=== PATIENT | male | born 1990 | race Caucasian/White ===

== ENCOUNTER → 2021-07-18 12:30 | Outpatient (BNVA) | payer OTHER, SELFPAY | PROVIDERS: Family Provider Family Medicine; PCP Family Medicine; Visit Provider Nurse Practitioner | DX: J02.9 Acute pharyngitis, unspecified (principal) | CPT/HCPCS: 87880 ==

== ENCOUNTER 2021-08-29 20:34 | Emergency (ER) | payer OTHER, SELFPAY ==
[2021-08-29 20:49] VITALS: BP 121/77; PULSE 83; RESP 16; TEMP 36.7; O2SAT 98
--- NOTE | 2021-08-29 21:10 | ED_ITS ---
Documented by User: BRADLEY Hanson 08/30/21 00:03 HPI - Abdominal Pain General: Chief Complaint: Abdominal Pain Stated Complaint: Pain from belly button to ribcage Time Seen by Provider: 08/29/21 21:09 History of Present Illness: HPI narrative: Patient comes in today with some abdominal discomfort and changes in bowels since . Patient appears well. Patient appears no acute distress. Patient reports crampy pain. Patient denies any chronic medical problems. Patient does use a PPI for reflux. Review of Systems General: Reports: 10 or more systems reviewed and unremarkable except in HPI and below GI: Reports: abdominal pain PFSH ED PFSH: Social History Smoking and tobacco status: current every day smoker (chew) Physical Exam Const: COMMON NORMALS: no acute distress and patient oriented x3 GENERAL APPEARANCE: cooperative HENMT: COMMON NORMALS: normocephalic, TM's normal bilaterally and Normal external nose present HEAD & SCALP: normal to inspection and normocephalic NOSE: Normal external nose present TYMPANIC MEMBRANE: TM's normal bilaterally MOUTH: Normal oral and palatal mucosa present THROAT: posterior oropharynx normal Eye: GENERAL EYE: appearance normal, both eyes and all related structures Neck/C-Spine: COMMON NORMALS: full ROM Lymph: LYMPHATIC: no lymphadenopathy noted Chest: COMMONS NORMALS: normal inspection of the chest Resp: COMMON NORMALS: normal respiratory effort EFFORT & INSPECTION: Yes a ble to speak in complete sentences Cardio: COMMON NORMALS: regular rate and regular rhythm RATE: regular rate RHYTHM: regular rhythm GI: COMMON NORMALS: Soft to palpation and non-tender PALPATION: Yes Soft to palpation, No Guarding due to palpation present (GI) and No Rebound tenderness present : COMMON NORMALS: Yes no CVA tenderness BLADDER/KIDNEY EXAM: Yes no CVA tenderness Back/Pelvis: COMMON NORMALS: no CVA tenderness and thoracic and lumbar spine normal to inspection Extremity: COMMON NORMALS: normal to inspection Neuro: COMMON NORMALS: patient oriented x3 and moves all extremities Psych: COMMON NORMALS: mental status grossly normal and cooperative Skin: COMMON NORMALS: no rashes or lesions noted GENERAL SKIN EXAM: no rashes or lesions noted Course Vital Signs: Vital signs: Vital Signs Temperature 98.1 F 08/29/21 20:49 Pulse Rate 74 08/30/21 01:08 Respiratory Rate 18 08/30/21 01:08 Blood Pressure 130/87 08/30/21 01:08 Pulse Oximetry 98 08/30/21 01:08 MDM - Abdominal Pain MDM Narrative: Medical decision making narrative: 30-year-old male patient comes in today with some abdominal pain and change in bowels. On exam abdomen soft with some mild tenderness. Bowel sounds are present. Skin is warm and dry. Vital signs are normal. Differential diagnosis includes but not limited to cholecystitis, constipation, appendicitis, gastroenteritis. Laboratory values were unremarkable. CT scan noted some fatty liver, adrenal nodule, and enteritis. Patient was reviewed recommended to have follow-up regarding his fatty liver and his adrenal nodule. Patient was recommended to use a light diet drink plenty of fluids and use dicyclomine as needed for abdominal cramping for his enteritis. Patient reported understanding of care plan and need for follow- up with primary care or return to the ER as needed. Lab Data: Labs: Lab Results 08/29/21 08/29/21 08/29/21 21:50 21:50 22:05 WBC 6.6 10^3/uL 10^3/ uL (4.0-10.0) RBC 4.93 10^6/uL 10^6 /uL (4.1-5.3) Hgb 16.2 g/dL g/dL (11.7-16.6) Hct 47.0 % % (42.0-52.0) MCV 95.3 fl H fl (80-94) MCH 32.9 pg pg (28.0-34.0) MCHC 34.5 g/dL g/dL (30.0-36.0) RDW 11.9 % L % (12.1-15.1) Plt Count 249 10^3/cmm 10^3 /cmm (130-400) MPV 9.8 fL fL (7.4-10.4) Neut % (Auto) 53.5 % % Lymph % (Auto) 35.1 % % [place] % (Auto) 8.2 % % Eos % (Auto) 2.0 % % Baso % (Auto) 0.9 % % Neut # (Auto) 3.52 10^3/uL 10^3 /uL (1.8-7.7) Lymph # (Auto) 2.3 10^3/uL 10^3/ uL (0.8-4.8) [place] # (Auto) 0.5 10^3/uL 10^3/ uL (0.2-0.9) Eos # (Auto) 0.1 10^3/uL 10^3/ uL (0.0-0.8) Baso # (Auto) 0.1 10^3/uL 10^3/ uL (0.0-0.1) Nucleated RBC % (a uto) 0 % % Nucleated RBCs # 0.0 /100WBC /100W BC Sodium 139 mmol/L mmol/L (136-145) Potassium 4.0 mmol/L mmol/L (3.5-5.1) Chloride 102 mmol/L mmol/L (98-107) Carbon Dioxide 22 mmol/L mmol/L (22-29) Anion Gap 19.0 (5-19) BUN 14 mg/dL mg/dL (6-20) Creatinine 0.9 mg/dL mg/dL (0.7-1.2) GFR Calculation 98.4 mL/min mL/mi n (90-130) Glucose 89 mg/dL mg/dL (65-115) Calculated Osmolal ity 288 mOsm/kg mOsm/ kg (285-295) Calcium 8.3 mg/dL L mg/dL (8.5-10.5) Total Bilirubin 0.7 mg/dL mg/dL (0.15-1.2) AST 20 U/L U/L (0-40) ALT 50 U/L H U/L (0-41) Alkaline Phosphata se 56 IU/L IU/L (40-130) Total Protein 6.3 g/dL L g/dL (6.6-8.7) Albumin 4.3 g/dL g/dL (3.5-5.2) Globulin 2.0 g/dL g/dL (1.3-4.6) Lipase 58 U/L U/L (13-60) Urine Color Yellow (Yellow) Urine Appearance Clear (CLEAR) Urine pH 7 (5-7) Ur Specific Gravit y 1.010 (1.005-1.030) Urine Protein Neg (Negative) Urine Glucose (UA) Norm (Normal) Urine Ketones Negative (Negative) Urine Blood Neg (Negative) Urine Nitrate Negative (Negative) Urine Bilirubin Neg (Negative) Urine Urobilinogen 4 mg/dL H mg/dL (Negative) Ur Leukocyte An ase Negative (Negative) Discharge Plan Discharge Patient Disposition: Home Clinical Impression: Enteritis Condition: Stable Prescriptions: New dicyclomine 20 mg tablet 20 mg PO TID PRN (Reason: abdominal pain) Qty: 20 RF: 0 No Action pantoprazole [Protonix] 20 mg tablet,delayed release (DR/EC) 20 mg PO BID RF: 0 Discharge Orders: Discharge ED (Routine); Ordered 08/29/21 Ordered By: Alvarado Sanches Referrals: Diego Masterson MD [Primary Care Provider] - Discharge Diet: Usual diet Discharge Activity: Increase activity as tolerated Patient Instructions: Enteritis (ED), Opioid Safety Activity Restrictions/Additional Instructions: Drink plenty of fluids. Medication as directed. Follow-up with primary care for further instruction. Incidentally it was noted on your CT scan that you have an Adrenal nodule that may need to be further evaluated with other imaging on a nonemergent basis which should be followed up with your primary care. It also notes that you have some mild fatty liver disease. Your illness today is enteritis which is often caused by a virus and usually runs 5 to 7 days. Most people notice a change in their bowel habits from diarrhea watery stools to more pale claylike stools. This usually resolves as your body fights off the virus. Drink plenty of water eat a light diet and follow-up with primary care. Return to the ER for high fever greater than 100.4, uncontrolled pain, or blood in vomit or stool. Coding Level of Care Code ED Youth Services Librarian for Chg Fwd Exam Comprehensive Documented by User: Gaudencio Marley DO 08/30/21 01:13 HPI - Abdominal Pain General: Chief Complaint: Abdominal Pain Stated Complaint: Pain from belly button to ribcage Time Seen by Provider: 08/29/21 21:09 PFSH ED PFSH: Social History Smoking and tobacco status: current every day smoker (chew) Course Vital Signs: Vital signs: Vital Signs Temperature 98.1 F 08/29/21 20:49 Pulse Rate 74 08/30/21 01:08 Respiratory Rate 18 08/30/21 01:08 Blood Pressure 130/87 08/30/21 01:08 Pulse Oximetry 98 08/30/21 01:08 MDM - Abdominal Pain MDM Narrative: Medical decision making narrative: This patient was originally seen by BRADLEY Soriano. I agree with his history, evaluation, and treatment. Lab Data: Labs: Lab Results 08/29/21 08/29/21 08/29/21 21:50 21:50 22:05 WBC 6.6 10^3/uL 10^3/ uL (4.0-10.0) RBC 4.93 10^6/uL 10^6 /uL (4.1-5.3) Hgb 16.2 g/dL g/dL (11.7-16.6) Hct 47.0 % % (42.0-52.0) MCV 95.3 fl H fl (80-94) MCH 32.9 pg pg (28.0-34.0) MCHC 34.5 g/dL g/dL (30.0-36.0) RDW 11.9 % L % (12.1-15.1) Plt Count 249 10^3/cmm 10^3 /cmm (130-400) MPV 9.8 fL fL (7.4-10.4) Neut % (Auto) 53.5 % % Lymph % (Auto) 35.1 % % [place] % (Auto) 8.2 % % Eos % (Auto) 2.0 % % Baso % (Auto) 0.9 % % Neut # (Auto) 3.52 10^3/uL 10^3 /uL (1.8-7.7) Lymph # (Auto) 2.3 10^3/uL 10^3/ uL (0.8-4.8) [place] # (Auto) 0.5 10^3/uL 10^3/ uL (0.2-0.9) Eos # (Auto) 0.1 10^3/uL 10^3/ uL (0.0-0.8) Baso # (Auto) 0.1 10^3/uL 10^3/ uL (0.0-0.1) Nucleated RBC % (a uto) 0 % % Nucleated RBCs # 0.0 /100WBC /100W BC Sodium 139 mmol/L mmol/L (136-145) Potassium 4.0 mmol/L mmol/L (3.5-5.1) Chloride 102 mmol/L mmol/L (98-107) Carbon Dioxide 22 mmol/L mmol/L (22-29) Anion Gap 19.0 (5-19) BUN 14 mg/dL mg/dL (6-20) Creatinine 0.9 mg/dL mg/dL (0.7-1.2) GFR Calculation 98.4 mL/min mL/mi n (90-130) Glucose 89 mg/dL mg/dL (65-115) Calculated Osmolal ity 288 mOsm/kg mOsm/ kg (285-295) Calcium 8.3 mg/dL L mg/dL (8.5-10.5) Total Bilirubin 0.7 mg/dL mg/dL (0.15-1.2) AST 20 U/L U/L (0-40) ALT 50 U/L H U/L (0-41) Alkaline Phosphata se 56 IU/L IU/L (40-130) Total Protein 6.3 g/dL L g/dL (6.6-8.7) Albumin 4.3 g/dL g/dL (3.5-5.2) Globulin 2.0 g/dL g/dL (1.3-4.6) Lipase 58 U/L U/L (13-60) Urine Color Yellow (Yellow) Urine Appearance Clear (CLEAR) Urine pH 7 (5-7) Ur Specific Gravit y 1.010 (1.005-1.030) Urine Protein Neg (Negative) Urine Glucose (UA) Norm (Normal) Urine Ketones Negative (Negative) Urine Blood Neg (Negative) Urine Nitrate Negative (Negative) Urine Bilirubin Neg (Negative) Urine Urobilinogen 4 mg/dL H mg/dL (Negative) Ur Leukocyte An ase Negative (Negative) Discharge Plan Discharge Patient Disposition: Home Clinical Impression: Enteritis Condition: Stable Prescriptions: New dicyclomine 20 mg tablet 20 mg PO TID PRN (Reason: abdominal pain) Qty: 20 RF: 0 No Action pantoprazole [Protonix] 20 mg tablet,delayed release (DR/EC) 20 mg PO BID RF: 0 Discharge Orders: Discharge ED (Routine); Ordered 08/29/21 Ordered By: Alvarado Sanches Referrals: Diego Masterson MD [Primary Care Provider] - Discharge Diet: Usual diet Discharge Activity: Increase activity as tolerated Patient Instructions: Enteritis (ED), Opioid Safety Activity Restrictions/Additional Instructions: Drink plenty of fluids. Medication as directed. Follow-up with primary care for further instruction. Incidentally it was noted on your CT scan that you have an Adrenal nodule that may need to be further evaluated with other imaging on a nonemergent basis which should be followed up with your primary care. It also notes that you have some mild fatty liver disease. Your illness today is enteritis which is often caused by a virus and usually runs 5 to 7 days. Most people notice a change in their bowel habits from diarrhea watery stools to more pale claylike stools. This usually resolves as your body fights off the virus. Drink plenty of water eat a light diet and follow-up with primary care. Return to the ER for high fever greater than 100.4, uncontrolled pain, or blood in vomit or stool. Coding Level of Care Code ED Youth Services Librarian for Erin Fwd Exam Comprehensive
--- NOTE | 2021-08-29 21:20 | CTR_ITS ---
PROCEDURE INFORMATION: Exam: CT Abdomen And Pelvis With Contrast Exam date and time: 08/29/2021 9:20 PM Age: 30 years old Clinical indication: Abdominal pain; Localized; Patient HX: C/O upper abd pain and nausea x 3 days TECHNIQUE: Imaging protocol: Computed tomography of the abdomen and pelvis with contrast. Radiation optimization: All CT scans at this facility use at least one of these dose optimization techniques: automated exposure control; mA and/or kV adjustment per patient size (includes targeted exams where dose is matched to clinical indication); or iterative reconstruction. Contrast material: OMNI 300; Contrast volume: 95 ml; Contrast route: INTRAVENOUS (IV); COMPARISON: [facility] Abdomen Limited 05/24/2018 8:33 AM RADIATION DOSE METRICS: Total DLP (mGy-cm): 1788.96 FINDINGS: Liver: Hepatic steatosis. Gallbladder and bile ducts: Normal. No calcified stones. No ductal dilation. Pancreas: Normal. No ductal dilation. Spleen: Normal. No splenomegaly. Adrenal glands: Lingular 5.6 mm nodule suspected series 2, image 1, dedicated nonemergent adrenal imaging advised. Kidneys and ureters: Normal. No hydronephrosis. Stomach and bowel: Prominent fluid in the small bowel without dilation suggestive of an enteritis. Appendix: No evidence of appendicitis. Intraperitoneal space: Unremarkable. No free air. No significant fluid collection. Vasculature: Unremarkable. No abdominal aortic aneurysm. Lymph nodes: Unremarkable. No enlarged lymph nodes. Urinary bladder: Unremarkable as visualized. Reproductive: Unremarkable as visualized. Bones/joints: Unremarkable. No acute fracture. Soft tissues: Unremarkable. CT/CT abdomen pelvis w con* [id number] IMPRESSION: 1. Prominent fluid in the small bowel without dilation suggestive of an enteritis. 2. Lingular 5.6 mm nodule suspected series 2, image 1, dedicated nonemergent adrenal imaging advised. 3. Hepatic steatosis. COMMENTS: Consistent with the [employer]'s Incidental Findings Committee white paper (J Am Cristian Radiol 2017): Any incidental adrenal lesion less than or equal to 1 cm is likely benign. No follow-up imaging is recommended for these lesions per consensus recommendations based on imaging criteria. Further lab evaluation could be pursued if warranted based on clinical findings. Radiation Dose CTDIVOL = (mGy): DLP = 1788.96 (mGy-cm)
[2021-08-29 21:59] LABS: Basophils # 0.1 10^3/uL (0.0-0.1); Basophils % 0.9 %; Eosinophils # 0.1 10^3/uL (0.0-0.8); Hemoglobin 16.2 g/dL (11.7-16.6); Lymphocytes # 2.3 10^3/uL (0.8-4.8); Lymphocytes % 35.1 %; Mean Corpuscular HGB Conc 34.5 g/dL (30.0-36.0); Mean Corpuscular Hemoglobin 32.9 pg (28.0-34.0); Mean Corpuscular Volume 95.3 fl (80-94); Mean Platelet Volume 9.8 fL (7.4-10.4); Monocytes # 0.5 10^3/uL (0.2-0.9); Monocytes % 8.2 %; Neutrophils # 3.52 10^3/uL (1.8-7.7); Neutrophils % 53.5 %; Nucleated Red Blood Cells % 0 %; Platelet Count 249 10^3/cmm (130-400); Red Blood Count 4.93 10^6/uL (4.1-5.3); Red Cell Distribution Width 11.9 % (12.1-15.1); White Blood Count 6.6 10^3/uL (4.0-10.0)
[2021-08-29 22:00] VITALS: BP 108/65; PULSE 69; RESP 18; O2SAT 99
[2021-08-29 22:15] LABS: Alanine Aminotransferase 50 U/L (0-41); Albumin Level 4.3 g/dL (3.5-5.2); Alkaline Phosphatase 56 IU/L (40-130); Aspartate Amino Transferase 20 U/L (0-40); Blood Urea Nitrogen 14 mg/dL (6-20); Calcium 8.3 mg/dL (8.5-10.5); Carbon Dioxide 22 mmol/L (22-29); Chloride 102 mmol/L (98-107); Glomerular Filtration Rate 98.4 mL/min (90-130); Glucose 89 mg/dL (65-115); Lipase 58 U/L (13-60); Osmolality Calculated 288 mOsm/kg (285-295); Sodium 139 mmol/L (136-145); Total Bilirubin 0.7 mg/dL (0.15-1.2); Total Protein 6.3 g/dL (6.6-8.7)
[2021-08-29 22:31] LABS: Add Urine Microscopic? NO; Charge for UA Resulting for Rev
[2021-08-29 22:34] LABS: Bilirubin Urine Neg (Negative); Blood Urine Neg (Negative); Glucose Urine UA Norm (Normal); Ketones Urine Negative (Negative); Leukocyte Esterase Urine Negative (Negative); Nitrate Urine Negative (Negative); Protein Urine Neg (Negative); Urine Appearance Clear (CLEAR); Urine Color Yellow (Yellow); Urobilinogen Urine 4 mg/dL (Negative); pH Urine 7 (5-7)
[2021-08-29] MEDS: iohexol 300 mg/mL 100 mL Btl IV (22:38)
[2021-08-30] VITALS: BP 105/73; PULSE 82; RESP 18; O2SAT 98
[2021-08-30] MEDS: dicyclomine 10 mg Capsule 20 MG PO (00:06)
--- NOTE | 2021-08-30 00:06 | PC.NURSE ---
Report to JAYSON Silver
[2021-08-30 01:08] VITALS: BP 130/87; PULSE 74; RESP 18; O2SAT 98
== END 2021-08-30 00:40 | disposition home or self-care (01) ==
PROVIDERS: Emergency Provider Nurse Practitioner Family; Family Provider Family Medicine; PCP Family Medicine
DX: K52.9 Noninfective gastroenteritis and colitis, unspecified (principal); F17.220 Nicotine dependence, chewing tobacco, uncomplicated
CPT/HCPCS: 74177; 80053; 81003; 83690; 85025; 99283; Q9967

== ENCOUNTER 2021-10-12 09:44 | Outpatient (CLI) | payer OTHER, SELFPAY ==
--- NOTE | 2021-10-12 09:50 | NM_ITS ---
WS: [id number] NUCLEAR MEDICINE HIDA SCAN WITH GALLBLADDER EJECTION FRACTION HISTORY: RUQ ABDOMINAL PAIN COMPARISON: Collateral ultrasound 09/14/2021 TECHNIQUE: The patient was intravenously injected with 7.7 mCi of TC99m Mebrofenin. Immediate imaging over the right upper quadrant was followed by 5 minute image and additional images for a total of 60 minutes. Normal uptake of radiotracer throughout the liver. Activity identified in the gallbladder at 10 minutes and well distended by 60 minutes. Activity in the proximal small bowel was seen by 20 minutes. Good washout of the radiotracer from the liver by 60 minutes. The patient then drank 8 ounces of Ensure Plus. Ejection fraction at 60 minutes was 93%. Normal GB ej ection fraction is 35-75%. Post fatty meal symptoms: None. NM/NM hepatobiliary w phar* [id number] IMPRESSION: 1. Normal HIDA scan. 2. Normal gallbladder ejection fraction.
== END 2021-10-12 09:45 | disposition home or self-care (01) ==
LOC: RAD 09:48
PROVIDERS: PCP Family Medicine; Visit Provider Family Medicine
DX: R10.11 Right upper quadrant pain (principal)
CPT/HCPCS: 78227; A9537

== ENCOUNTER 2022-01-26 16:04 | Outpatient (CLI) | payer OTHER, SELFPAY ==
[2022-01-26 18:22] LABS: Viscosity Semen Droplets
[2022-01-26 18:23] LABS: Epithelial Count Semen 0-4 /hpf; Pathology Referral Yes; Red Blood Count Semen 0-4 /hpf; Sperm Immotility 10 % (50-60); Sperm Non-Progressive Motility 0 % (5-10); Sperm Progressive Motility 90 % (31-34)
== END 2022-01-26 16:05 | disposition home or self-care (01) ==
LOC: LAB 16:10
PROVIDERS: PCP Family Medicine; Visit Provider Family Medicine
DX: N46.9 Male infertility, unspecified (principal)
CPT/HCPCS: 80503; 89320

== ENCOUNTER → 2022-05-31 08:54 | Outpatient (BNVA) | payer OTHER, SELFPAY | PROVIDERS: PCP Family Medicine; Visit Provider Urology | DX: N46.9 Male infertility, unspecified (principal) | CPT/HCPCS: 81003 ==